=== PATIENT | female | born 1985 | race Caucasian/White ===

== ENCOUNTER 2016-05-24 19:14 | Emergency (ER) | payer MEDICAID ==
[~2016-05-24] VITALS: Ht 162.6 cm; Wt 65.9 kg
[2016-05-24 20:40] VITALS: BP 118/73
[2016-05-24] MEDS ORDERED: PERTUSS(ACELL),DIPH,TET VAC/PF 0.5 ML VIAL IM ONE (20:45)
== END 2016-05-24 21:00 | disposition home or self-care (01) ==
LOC: EMS 19:15
DX: S61.411A Laceration without foreign body of right hand, initial encounter (principal); W26.0XXA Contact with knife, initial encounter; Y93.89 Activity, other specified; Y92.89 Other specified places as the place of occurrence of the external cause; Y99.8 Other external cause status
CPT/HCPCS: 12001; 90471; 90715; 99283